=== PATIENT | female | born 1975 | race Hispanic/Latino ===

== ENCOUNTER 2024-10-27 20:06 | Emergency (ER) | payer OTHER ==
[~2024-10-27] VITALS: Ht 162.6 cm; Wt 98.0 kg
[2024-10-27 20:41] LABS: BASOPHILS % 0.2 % (0.0-1.0); EOSINOPHILS % 3.3 % (0.0-6.0); LYMPHOCYTES % 17.8 % (18.0-39.1); MONOCYTES % 7.1 % (4.4-11.3); NEUTROPHILS % 70.5 % (38.7-80.0); RED CELL DISTRIBUTION WIDTH 17.5 % (11.7-14.4)
[2024-10-27 21:02] LABS: EST GLOMERULAR FILTRATION RATE 102.0 ML/MIN (>=60)
[2024-10-27] MEDS ORDERED: SODIUM CHLORIDE 0.9% 250ML 250 ML ONE (22:42)
[2024-10-27] MEDS: SODIUM CHLORIDE 0.9% 250ML 250 ML IV ONE (22:56)
[2024-10-27] MEDS ORDERED: ACETAMINOPHEN 325 MG TAB ONE (23:24)
[2024-10-27] MEDS: ACETAMINOPHEN 325 MG TAB PO ONE (23:34)
[2024-10-27] MEDS ORDERED: IOPAMIDOL 370 MG/ML 100 ML INFUS..BTL INJ ONE (23:57)
[2024-10-28 03:30] VITALS: PULSE 78; RESP 20; TEMP 98.1
[2024-10-28 03:57] VITALS: BP 140/77; O2SAT 97
== END 2024-10-28 03:55 | disposition home or self-care (01) ==
LOC: ER 20:13
DX: N93.8 Other specified abnormal uterine and vaginal bleeding (principal); D64.9 Anemia, unspecified; K57.90 Diverticulosis of intestine, part unspecified, without perforation or abscess without bleeding; R94.31 Abnormal electrocardiogram [ECG] [EKG]
CPT/HCPCS: 36415; 74177; 80053; 84702; 85025; 86850; 86900; 86920; 93005; 99284; J7050; P9016; Q9967

== ENCOUNTER 2024-11-03 20:45 | Emergency (ER) | payer OTHER ==
[~2024-11-03] VITALS: Ht 162.6 cm; Wt 98.0 kg
[2024-11-03 21:35] LABS: BASOPHILS % 0.2 % (0.0-1.0); EOSINOPHILS % 4.1 % (0.0-6.0); LYMPHOCYTES % 16.6 % (18.0-39.1); MONOCYTES % 7.4 % (4.4-11.3); NEUTROPHILS % 70.7 % (38.7-80.0); RED CELL DISTRIBUTION WIDTH 19.5 % (11.7-14.4)
[2024-11-03 21:54] LABS: EST GLOMERULAR FILTRATION RATE 101.0 ML/MIN (>=60)
[2024-11-03] MEDS: SODIUM CHLORIDE 0.9% 250ML 250 ML IV ONE (23:19)
[2024-11-04 02:10] VITALS: BP 137/78; PULSE 84; RESP 18; TEMP 98.4
[2024-11-04 02:19] VITALS: PULSE 86; RESP 19; TEMP 98.3; O2SAT 100
[2024-11-04 04:31] LABS: ELLIPTOCYTE, RBC SLIGHT
[2024-11-04 04:32] LABS: PLATELET ESTIMATE ADEQUATE; PLATELET MORPHOLOGY COMMENT NORMAL; RBC MORPHOLOGY COMMENT ABNORMAL
== END 2024-11-04 02:30 | disposition other institution (70) ==
LOC: ER 20:48 → ERHOLD 11-04 00:14 → UNDOADMOB 11-04 00:14 → ER 11-04 02:30
DX: N93.8 Other specified abnormal uterine and vaginal bleeding (principal); D64.89 Other specified anemias; R53.1 Weakness; R53.81 Other malaise
CPT/HCPCS: 36415; 80053; 84702; 85025; 86850; 86900; 86920; 99284; J7050; P9016

== ENCOUNTER 2024-11-11 20:44 | Emergency (ER) | payer OTHER ==
[~2024-11-11] VITALS: Ht 162.6 cm; Wt 121.6 kg
[2024-11-11 20:48] VITALS: PULSE 92; RESP 22; TEMP 98.8
[2024-11-11 21:21] LABS: BASOPHILS % 0.4 % (0.0-1.0); EOSINOPHILS % 2.5 % (0.0-6.0); LYMPHOCYTES % 17.8 % (18.0-39.1); MONOCYTES % 7.5 % (4.4-11.3); NEUTROPHILS % 71.4 % (38.7-80.0); RED CELL DISTRIBUTION WIDTH 20.7 % (11.7-14.4)
[2024-11-11 21:41] LABS: EST GLOMERULAR FILTRATION RATE 95.0 ML/MIN (>=60)
[2024-11-11] MEDS: SODIUM CHLORIDE 0.9% 250ML 250 ML IV ONE (23:00)
[2024-11-12] MEDS: ACETAMINOPHEN 325 MG TAB PO STA (00:35)
[2024-11-12] MEDS ORDERED: SODIUM CHLORIDE 0.9% 250ML 250 ML ONE (01:58)
[2024-11-12 05:09] VITALS: BP 116/75; PULSE 80; RESP 19; TEMP 98.2; O2SAT 100
== END 2024-11-12 04:50 | disposition home or self-care (01) ==
LOC: ER 21:01
DX: N93.8 Other specified abnormal uterine and vaginal bleeding (principal); D64.9 Anemia, unspecified; I10 Essential (primary) hypertension
CPT/HCPCS: 36415; 80053; 85025; 86850; 86900; 86920; 99284; J7050 ×2; P9016